=== PATIENT | female | born 1960 | race Caucasian/White ===

== ENCOUNTER → 2016-12-07 | Outpatient (REF) | payer OTHER ==
[~2016-12-07] MED LIST: ADV250INH INH; ALBU17IN INH; ASPI1TAB PO; CITA20TA4 PO; ENAL10TA2 PO; GABA-279 PO; OMEP20CA3 PO; PERC5TAB6 PO; TOLT1CAP4 PO; TOLT2TAB12 PO
[2016-12-07 12:59] LABS: BASO # 0.1 K/mm3 (0.0-0.2); BASO % 0.9 % (0.0-1.0); EOS # 0.2 K/mm3 (0.0-0.50); EOS % 2.4 % (0.0-3.0); LARGE UNSTAINED CELL # 0.1 K/mm3 (0.0-0.4); LARGE UNSTAINED CELL % 1.2 % (0.0-4.0); LYMPH # 1.6 K/mm3 (1.5-4.5); LYMPH % 21.6 % (24.0-44.0); MEAN CORPUSCULAR HEMOGLOBIN 31.2 pg (27.0-33.0); MEAN CORPUSCULAR HGB CONC 32.9 g/dl (32.0-36.5); MEAN CORPUSCULAR VOLUME 94.7 fl (80.0-96.0); MONO # 0.5 K/mm3 (0.0-0.8); MONO % 7.5 % (0.0-5.0); NEUTROPHILS # 4.7 K/mm3 (1.8-7.7); NEUTROPHILS % 66.4 % (36.0-66.0); PLATELET COUNT, AUTOMATED 532 k/mm3 (150-450); RED CELL DISTRIBUTION WIDTH 12.1 % (11.5-14.5); WHITE BLOOD COUNT 7.1 K/mm3 (4.0-10.0)
[2016-12-07 14:31] LABS: ERYTHROCYTE SEDIMENTATION RATE 41 mm/hr (0-30)
[2016-12-09 00:15] LABS: Lyme Disease IgG/IgM Antibodie <0.91 ISR (0.00-0.90); Lyme Disease IgM Ab Quantitati <0.80 index (0.00-0.79)
== END ==
LOC: M LABDRAW1 12:39
PROVIDERS: ATTEND Orthopaedic Surgery
DX: M47.892 Other spondylosis, cervical region (principal)

== ENCOUNTER → 2017-02-05 | Outpatient (CLI) | payer OTHER ==
[2017-02-05 18:19] LABS: INR 0.92
[2017-02-05 19:31] LABS: BASO # 0.1 K/mm3 (0.0-0.2); BASO % 1.1 % (0.0-1.0); EOS # 0.3 K/mm3 (0.0-0.50); EOS % 3.1 % (0.0-3.0); LARGE UNSTAINED CELL # 0.2 K/mm3 (0.0-0.4); LARGE UNSTAINED CELL % 1.6 % (0.0-4.0); LYMPH # 2.2 K/mm3 (1.5-4.5); LYMPH % 22.1 % (24.0-44.0); MEAN CORPUSCULAR HEMOGLOBIN 31.2 pg (27.0-33.0); MEAN CORPUSCULAR HGB CONC 33.4 g/dl (32.0-36.5); MEAN CORPUSCULAR VOLUME 93.4 fl (80.0-96.0); MONO # 0.7 K/mm3 (0.0-0.8); MONO % 7.5 % (0.0-5.0); NEUTROPHILS # 6.1 K/mm3 (1.8-7.7); NEUTROPHILS % 64.6 % (36.0-66.0); PLATELET COUNT, AUTOMATED 557 k/mm3 (150-450); RED CELL DISTRIBUTION WIDTH 12.3 % (11.5-14.5); WHITE BLOOD COUNT 9.4 K/mm3 (4.0-10.0)
[2017-02-05 19:59] LABS: ALBUMIN 3.5 GM/DL (3.2-5.2); ALBUMIN/GLOBULIN RATIO 0.92 (1.00-1.93); ALKALINE PHOSPHATASE 112 U/L (45-117); ALT/SGPT 14 U/L (12-78); ANION GAP 8 MEQ/L (8-16); AST/SGOT 9 U/L (15-37); BILIRUBIN,TOTAL 0.5 MG/DL (0.2-1.0); BLOOD UREA NITROGEN 14 MG/DL (7-18); CALCIUM LEVEL 8.7 MG/DL (8.5-10.1); CARBON DIOXIDE LEVEL 26 MEQ/L (21-32); CHLORIDE LEVEL 104 MEQ/L (98-107); CREATININE FOR GFR 0.72 MG/DL (0.55-1.02); GLOMERULAR FILTRATION RATE > 60.0 (>51); GLUCOSE, FASTING 72 MG/DL (70-105); POTASSIUM SERUM 4.3 MEQ/L (3.5-5.1); SODIUM LEVEL 138 MEQ/L (136-145); TOTAL PROTEIN 7.3 GM/DL (6.4-8.2)
[2017-02-05 20:43] LABS: ERYTHROCYTE SEDIMENTATION RATE 12 mm/hr (0-30)
== END ==
LOC: M LAB 16:34
PROVIDERS: ATTEND Internal Medicine Rheumatology
DX: M35.9 Systemic involvement of connective tissue, unspecified (principal); Z79.899 Other long term (current) drug therapy; R53.83 Other fatigue; R23.3 Spontaneous ecchymoses

== ENCOUNTER → 2017-02-15 | Outpatient (REF) | payer OTHER ==
[2017-02-15 10:28] LABS: BASO % 0.6 % (0.0-1.0); EOS # 0.1 K/mm3 (0.0-0.50); EOS % 1.5 % (0.0-3.0); LYMPH # 0.8 K/mm3 (1.5-4.5); LYMPH % 11.9 % (24.0-44.0); MEAN CORPUSCULAR HEMOGLOBIN 31.8 pg (27.0-33.0); MEAN CORPUSCULAR VOLUME 96.2 fl (80.0-96.0); MONO # 0.3 K/mm3 (0.0-0.8); NEUTROPHILS # 5.5 K/mm3 (1.8-7.7); NEUTROPHILS % 81.2 % (36.0-66.0); RED CELL DISTRIBUTION WIDTH 12.3 % (11.5-14.5); RETIC HEMOGLOBIN CONTENT CHr 32.8 PG (24-36); RETICULOCYTE % ADVIA2120 1.8 % (0.5-1.5); WHITE BLOOD COUNT 6.8 K/mm3 (4.0-10.0)
[2017-02-15 10:51] LABS: PERCENT SATURATION 16.8 % (13.2-37.4)
[2017-02-15 10:57] LABS: FOLATE 7.5 NG/ML (>5.4)
== END ==
LOC: M LABDRAW1 09:04
PROVIDERS: ATTEND Registered Nurse Diabetes Educator
DX: E03.9 Hypothyroidism, unspecified (principal); J44.9 Chronic obstructive pulmonary disease, unspecified; I10 Essential (primary) hypertension; K21.0 Gastro-esophageal reflux disease with esophagitis; R07.9 Chest pain, unspecified

== ENCOUNTER → 2017-02-20 | Outpatient (REF) | payer OTHER ==
[2017-02-20 19:19] LABS: PERCENT SATURATION 12.6 % (13.2-37.4)
== END ==
LOC: M LAB REF 16:58
PROVIDERS: ATTEND Internal Medicine Medical Oncology
DX: D69.1 Qualitative platelet defects (principal)

== ENCOUNTER → 2017-05-10 | Outpatient (REF) | payer OTHER ==
[~2017-05-10] MED LIST changes: +DULO1CAP3 PO; +GABA-283 PO; +HYDR-3713 PO; +PERC5TAB12 PO; -PERC5TAB6 PO; +ZOLO50TA PO
[2017-05-10 17:26] LABS: ALBUMIN 3.6 GM/DL (3.2-5.2); ALBUMIN/GLOBULIN RATIO 1.06 (1.00-1.93); ALKALINE PHOSPHATASE 107 U/L (45-117); ALT/SGPT 20 U/L (12-78); ANION GAP 11 MEQ/L (8-16); AST/SGOT 12 U/L (15-37); BILIRUBIN,TOTAL 0.5 MG/DL (0.2-1.0); BLOOD UREA NITROGEN 15 MG/DL (7-18); CALCIUM LEVEL 9.3 MG/DL (8.5-10.1); CARBON DIOXIDE LEVEL 26 MEQ/L (21-32); CHLORIDE LEVEL 105 MEQ/L (98-107); CREATININE FOR GFR 0.76 MG/DL (0.55-1.02); GLOMERULAR FILTRATION RATE > 60.0 (>51); GLUCOSE, FASTING 81 MG/DL (70-105); POTASSIUM SERUM 4.2 MEQ/L (3.5-5.1); SODIUM LEVEL 142 MEQ/L (136-145)
[2017-05-10 17:33] LABS: VITAMIN B12 LEVEL 685 PG/ML (247-911)
[2017-05-10 17:56] LABS: BASO # 0.1 K/mm3 (0.0-0.2); BASO % 0.9 % (0.0-1.0); EOS # 0.2 K/mm3 (0.0-0.50); EOS % 2.1 % (0.0-3.0); LARGE UNSTAINED CELL # 0.1 K/mm3 (0.0-0.4); LARGE UNSTAINED CELL % 1.3 % (0.0-4.0); LYMPH % 18.1 % (24.0-44.0); MEAN CORPUSCULAR HEMOGLOBIN 32.5 pg (27.0-33.0); MEAN CORPUSCULAR HGB CONC 33.8 g/dl (32.0-36.5); MONO # 0.6 K/mm3 (0.0-0.8); MONO % 5.8 % (0.0-5.0); NEUTROPHILS # 7.5 K/mm3 (1.8-7.7); NEUTROPHILS % 71.7 % (36.0-66.0); PLATELET COUNT, AUTOMATED 485 k/mm3 (150-450); WHITE BLOOD COUNT 10.5 K/mm3 (4.0-10.0)
== END ==
LOC: M LABDRAW1 16:10
PROVIDERS: ATTEND Internal Medicine Medical Oncology
DX: D47.3 Essential (hemorrhagic) thrombocythemia (principal)

== ENCOUNTER 2017-05-15 16:28 | Emergency (ER) | payer OTHER ==
[~2017-05-15] VITALS: Ht 152.4 cm; Wt 100.9 kg
[~2017-05-15 16:28] MED LIST changes: -DULO1CAP3 PO; -GABA-283 PO; -HYDR-3713 PO; -ZOLO50TA PO
[2017-05-15] MEDS ORDERED: DULO1CAP3 PO (16:42)
[2017-05-15] MEDS ORDERED: GABA-283 PO (16:42)
[2017-05-15] MEDS ORDERED: KETOROLAC 60 MG/2 ML VIAL (J1885) IM ONE (18:15)
--- NOTE | 2017-05-15 19:10 | REPUSA ---
HISTORY: RIGHT RENAL COLIC. TECHNIQUE: Axial CT scan imaging of abdomen and pelvis with coronal and sagittal reformatted imaging, without contrast. DLP= 1142.4 mGy-cm. FINDINGS: No calculus is seen in the right kidney and no is seen on the noncontrast examination. Rig ht ureter is not dilated but there is a tiny suspected 1 mm calculus seen in the right pelvic ureter on image 102 that could represent nonobstructing calculus. The ureter at the ureterovesical junction is normal. Left kidney, left ureter, and urinary bladder demonstrate no mass or obstruction or evid ence of calculus. The liver, biliary tree, gallbladder, spleen, pancreas, adrenal glands, and retroperitoneal structure s are normal. No other pelvic mass lesions or abnormal peritoneal fluid collections are seen. The b owel is normal and the appendix is normal. No abdominal wall hernia is seen. Lung bases are clear. Degenerative changes are noted in the spine. No bony fracture or destructive bony lesion is seen. IMPRESSION: 1. There is question of a tiny nonobstructing 1 mm calculus in the right pelvic ureter, with no other abnormality seen in the urinary tract: Noncontrast examination. 2. The remainder of the noncontrast CT examination of the abdomen and pelvis is normal.
[2017-05-15] MEDS ORDERED: HYDROmorphone HCL 1 MG/ML SYRINGE (J1170) IM ONE (19:30)
[2017-05-15] MEDS ORDERED: HYDR-3713 PO (19:32)
[2017-05-15 20:00] VITALS: BP 123/70
[2017-07-23] MEDS ORDERED: ZOLO50TA PO (12:37)
== END 2017-05-15 20:05 | disposition home or self-care (01) ==
LOC: M ED 16:28
DX: M54.31 Sciatica, right side (principal); I25.10 Atherosclerotic heart disease of native coronary artery without angina pectoris; I10 Essential (primary) hypertension; J44.9 Chronic obstructive pulmonary disease, unspecified; F99 Mental disorder, not otherwise specified; E66.9 Obesity, unspecified; F17.210 Nicotine dependence, cigarettes, uncomplicated; Z88.1 Allergy status to other antibiotic agents; Z88.2 Allergy status to sulfonamides; Z88.5 Allergy status to narcotic agent; Z79.82 Long term (current) use of aspirin; Z79.899 Other long term (current) drug therapy
CPT/HCPCS: 74176; 81001; 96372; 99283; J1170; J1885

== ENCOUNTER → 2017-05-29 | Outpatient (CLI) | payer OTHER ==
[~2017-05-29] MED LIST changes: +DULO1CAP3 PO; +GABA-283 PO; +HYDR-3713 PO; +ZOLO50TA PO
[2017-05-29 13:35] LABS: BLOOD UREA NITROGEN 12 MG/DL (7-18); CREATININE FOR GFR 0.75 MG/DL (0.55-1.02); GLOMERULAR FILTRATION RATE > 60.0 (>51)
== END ==
LOC: M SMT 10:52
PROVIDERS: ATTEND Physical Medicine & Rehabilitation
DX: Z01.812 Encounter for preprocedural laboratory examination (principal)

== ENCOUNTER 2017-07-05 13:22 | Emergency (ER) | payer OTHER ==
[~2017-07-05] VITALS: Ht 154.9 cm; Wt 100.0 kg
[~2017-07-05 13:22] MED LIST changes: -ZOLO50TA PO
[2017-07-05] MEDS ORDERED: PERCOCET 5MG/325MG TAB PO ONE (16:00)
--- NOTE | 2017-07-05 17:19 | REP ---
LEFT ELBOW: Four views of the left elbow are performed. There is no acute fracture or dislocation. There is moderate spurring of the proximal ulna. Linear calcification along the medial humeral epicondyle probably represents ligamentous calcification. IMPRESSION: Degenerative changes. No fracture or dislocation. Signed by Aime Hernandez MD 07/05/2017 07:56 P
[2017-07-05] MEDS ORDERED: HYDR-3713 PO (17:22)
--- NOTE | 2017-07-05 17:27 | REP ---
LEFT KNEE SERIES, FIVE VIEWS: There is no evidence of acute fracture or dislocation. There is moderate lateral joint space narrowing with subchondral sclerosis and spurring. There is mild narrowing of the medial and lateral joint compartments with mild subchondral sclerosis and spurring. I do not see a significant joint effusion. IMPRESSION: No acute fracture. Degenerative changes. Signed by Aime Hernandez MD 07/05/2017 07:56 P
[2017-07-05 17:29] VITALS: BP 127/87
[2017-07-23] MEDS ORDERED: ZOLO50TA PO (12:37)
== END 2017-07-05 17:32 | disposition home or self-care (01) ==
LOC: M ED 13:22
DX: S80.02XA Contusion of left knee, initial encounter (principal); W01.0XXA Fall on same level from slipping, tripping and stumbling without subsequent striking against object, initial encounter; Y92.018 Other place in single-family (private) house as the place of occurrence of the external cause; Y93.89 Activity, other specified; Y99.8 Other external cause status; M54.5 Low back pain; I10 Essential (primary) hypertension; J44.9 Chronic obstructive pulmonary disease, unspecified; G47.30 Sleep apnea, unspecified; R32 Unspecified urinary incontinence; M19.90 Unspecified osteoarthritis, unspecified site; M48.02 Spinal stenosis, cervical region; Z79.899 Other long term (current) drug therapy; Z79.82 Long term (current) use of aspirin; Z88.1 Allergy status to other antibiotic agents; Z88.2 Allergy status to sulfonamides; Z88.5 Allergy status to narcotic agent

== ENCOUNTER → 2017-07-27 | Outpatient (REF) | payer OTHER ==
[~2017-07-27] MED LIST changes: +ZOLO50TA PO
[2017-07-27 14:11] LABS: YEAST LIKE CELL URINE AUTO SMALL
== END ==
LOC: M SMT 13:09
PROVIDERS: ATTEND Nurse Practitioner Women's Health
DX: R30.0 Dysuria (principal)

== ENCOUNTER 2017-08-06 12:58 | Day surgery (SDC) | payer OTHER ==
[~2017-08-06] VITALS: Ht 154.9 cm; Wt 100.6 kg
[2017-08-06] MEDS ORDERED: CLINDAMYCIN 600 MG in APPROPRIATE DILUENT 1 EA IV ONE (13:00)
[2017-08-06] MEDS ORDERED: LR 1,000 ML IV ONE (13:00)
[2017-08-06] MEDS ORDERED: LIDOCAINE 2% INJ 100 MG/5 ML SDV (FOR ANES.) As Ordered ONE (16:13)
[2017-08-06] MEDS ORDERED: PROPOFOL 200 MG/20 ML VIAL As Ordered ONE (16:13)
[2017-08-06] MEDS ORDERED: fentaNYL 100 MCG/2 ML INJECTION (J3010) As Ordered ONE (16:14)
[2017-08-06] MEDS ORDERED: MIDAZOLAM INJ 2 MG/2 ML VIAL (J2250) As Ordered ONE (16:14)
[2017-08-06] MEDS ORDERED: ROPIvacaine 0.5% 30 ML INJECTION (J2795) As Ordered ONE (16:37)
[2017-08-06] MEDS ORDERED: NORCO, ANEXSIA 5/325MG TABLET (HYDROcodone/ACETAMINOPHEN) PO PRN (19:00)
[2017-08-06] MEDS ORDERED: ONDANSETRON 4MG/2ML VIAL (J2405) IV PRN (19:00)
[2017-08-06] MEDS ORDERED: METOCLOPRAMIDE INJ 10MG/2ML VIAL (J2765) IV PRN (19:00)
[2017-08-06] MEDS ORDERED: fentaNYL 100 MCG/2 ML INJECTION (J3010) IV PRN (19:00)
[2017-08-06] MEDS ORDERED: LR 1,000 ML IV SCH ×2 (19:00)
[2017-08-06] MEDS ORDERED: MORPHINE 2 MG/ML 1ML SYRINGE IV PRN (19:00)
[2017-08-06] MEDS ORDERED: PERCOCET 5MG/325MG TAB PO PRN (19:00)
[2017-08-06] MEDS: NORCO, ANEXSIA 5/325MG TABLET (HYDROcodone/ACETAMINOPHEN) PO PRN (19:24)
[2017-08-06 21:00] VITALS: BP 132/70
[2017-08-06] MEDS ORDERED: PHENYLephrine HCL 500 MCG/5 ML (100MCG/ML) SYRINGE (J2370) As Ordered ONE (21:46)
[2017-08-06 22:00] VITALS: BP 121/80
[2017-08-07 02:00] VITALS: BP 115/68
[2017-08-07 06:00] VITALS: BP 108/90
[2017-08-07] MEDS: NORCO, ANEXSIA 5/325MG TABLET (HYDROcodone/ACETAMINOPHEN) PO PRN ×2 (06:43→12:35)
--- NOTE | 2017-08-08 07:33 | RO ---
DATE OF PROCEDURE: 08/06/2017 PREOPERATIVE DIAGNOSIS: Right knee lateral meniscus tear and arthritis. POSTOPERATIVE DIAGNOSIS: Right knee lateral meniscus tear and arthritis with medial meniscus tear and advanced patellofemoral arthritis. PROCEDURE: Right knee operative arthroscopy, partial medial and lateral meniscectomy, joint debridement. SURGEON: Dr. Zach Damico RINK RAT: Woo Mcknight ANESTHESIA: Spinal. ESTIMATED BLOOD LOSS: Minimal. COMPLICATIONS: None. INDICATIONS: This is a 57-year-old morbidly obese woman who has had persistent right knee pain. MRI scan was consistent with possible meniscus pathology, but also had some advanced arthritis. She is really not a very good total knee candidate because of her obesity. She wished to try and arthroscopy, understanding that I would not be able to help her with the arthritis. She understood the nature of this and the risks of bleeding, infection, damage to nerves, vessels, persistent pain, blood clots, medical problems, among others. PROCEDURE: The patient was taken to the operating room and placed in supine position after spinal anesthesia was induced. She was prepped and draped in the usual sterile fashion. A time-out was performed. Inferomedial and inferolateral portals were created per routine. Identified the patellofemoral joint and she had extensive arthritis of the patellofemoral joint, grade 4 throughout much of the joint. I proceeded down both gutters. She had some loose flaps of articular cartilage on the medial femoral condyle that were debrided back. She had a full thickness medial meniscus tear of the posterior horn that was debrided back with a combination of basket punch and a 4.2 shaver back to stable rim. I proceeded to the notch. The anterior cruciate ligament (ACL) was overall unremarkable. The lateral compartment was identified and there was some central lateral meniscus tearing throughout much of the meniscus. I debrided this with a shaver, reprobed the menisci and made sure that was stable. Went back to the patellofemoral joint and debrided back some of the plica around the medial side. Multiple images were obtained. The portals were closed with #4-0 nylon suture and 30 mL of Naropin were injected. She was taken to the recovery room in stable condition. There were no known complications. The plan will be routine postoperative.
== END 2017-08-07 13:00 | disposition home or self-care (01) ==
LOC: M SDC 12:58 → M MS5PR 21:15 → M SDC 08-07 13:00
PROVIDERS: ATTEND Orthopaedic Surgery
DX: M23.221 Derangement of posterior horn of medial meniscus due to old tear or injury, right knee (principal); M23.200 Derangement of unspecified lateral meniscus due to old tear or injury, right knee; M17.0 Bilateral primary osteoarthritis of knee; I10 Essential (primary) hypertension; I25.10 Atherosclerotic heart disease of native coronary artery without angina pectoris; T88.59XD Other complications of anesthesia, subsequent encounter; I25.2 Old myocardial infarction; K21.9 Gastro-esophageal reflux disease without esophagitis; M48.00 Spinal stenosis, site unspecified; F41.9 Anxiety disorder, unspecified; F32.9 Major depressive disorder, single episode, unspecified; J44.9 Chronic obstructive pulmonary disease, unspecified; G47.33 Obstructive sleep apnea (adult) (pediatric); R32 Unspecified urinary incontinence; D64.9 Anemia, unspecified; M47.22 Other spondylosis with radiculopathy, cervical region; G89.29 Other chronic pain; E03.9 Hypothyroidism, unspecified; F17.210 Nicotine dependence, cigarettes, uncomplicated; E66.01 Morbid (severe) obesity due to excess calories; Z88.2 Allergy status to sulfonamides; Z88.5 Allergy status to narcotic agent; Z88.8 Allergy status to other drugs, medicaments and biological substances; Z79.899 Other long term (current) drug therapy; Z79.82 Long term (current) use of aspirin; Z87.442 Personal history of urinary calculi; Z90.710 Acquired absence of both cervix and uterus

== ENCOUNTER 2017-09-20 11:25 | Emergency (ER) | payer OTHER ==
[~2017-09-20] VITALS: Ht 154.9 cm; Wt 100.5 kg
[2017-09-20 11:26] VITALS: BP 137/91
[2017-09-20] MEDS ORDERED: NORCOTAB PO (13:46)
== END 2017-09-20 14:16 | disposition home or self-care (01) ==
LOC: M ED 11:25
DX: M54.41 Lumbago with sciatica, right side (principal); M54.17 Radiculopathy, lumbosacral region; I10 Essential (primary) hypertension; J44.9 Chronic obstructive pulmonary disease, unspecified; E78.00 Pure hypercholesterolemia, unspecified; M19.90 Unspecified osteoarthritis, unspecified site; F41.9 Anxiety disorder, unspecified; F33.9 Major depressive disorder, recurrent, unspecified; Z87.442 Personal history of urinary calculi; Z86.73 Personal history of transient ischemic attack (TIA), and cerebral infarction without residual deficits; Z79.899 Other long term (current) drug therapy; Z79.82 Long term (current) use of aspirin; Z88.1 Allergy status to other antibiotic agents; Z88.2 Allergy status to sulfonamides; Z88.5 Allergy status to narcotic agent; Z88.8 Allergy status to other drugs, medicaments and biological substances; F17.210 Nicotine dependence, cigarettes, uncomplicated

== ENCOUNTER 2017-10-22 11:15 | Emergency (ER) | payer OTHER | END 2017-10-22 17:14 | disposition home or self-care (01) | LOC: M ED 11:15 | DX: S20.212A Contusion of left front wall of thorax, initial encounter (principal); W01.0XXA Fall on same level from slipping, tripping and stumbling without subsequent striking against object, initial encounter; Y92.018 Other place in single-family (private) house as the place of occurrence of the external cause; I10 Essential (primary) hypertension; F41.9 Anxiety disorder, unspecified; F33.9 Major depressive disorder, recurrent, unspecified; M51.9 Unspecified thoracic, thoracolumbar and lumbosacral intervertebral disc disorder; G47.30 Sleep apnea, unspecified; I25.9 Chronic ischemic heart disease, unspecified; Z79.899 Other long term (current) drug therapy; Z79.82 Long term (current) use of aspirin; Z88.1 Allergy status to other antibiotic agents; Z88.2 Allergy status to sulfonamides; Z88.5 Allergy status to narcotic agent; F17.210 Nicotine dependence, cigarettes, uncomplicated | CPT/HCPCS: 71100 ==

== ENCOUNTER → 2017-11-06 | Outpatient (REF) | payer OTHER ==
[2017-11-06 14:21] LABS: VITAMIN B12 LEVEL 496 PG/ML (247-911)
[2017-11-06 14:22] LABS: FERRITIN 91 NG/ML (8-252); IRON (FE) 53 UG/DL (50-170); PERCENT SATURATION 14.4 % (13.2-45.0); TOTAL IRON BINDING CAPACITY 368 UG/DL (250-450)
[2017-11-06 16:27] LABS: ERYTHROCYTE SEDIMENTATION RATE 33 mm/hr (0-30)
[2017-11-09 00:06] LABS: METHYLMALONIC ACID 237 nmol/L (0-378)
== END ==
LOC: M LAB REF 13:19
DX: D69.6 Thrombocytopenia, unspecified (principal)

== ENCOUNTER 2017-11-27 08:30 | Day surgery (SDC) | payer OTHER ==
[2017-11-27] MEDS: NS 1,000 ML IV (09:35)
[2017-11-27] MEDS ORDERED: LIDOCAINE 2% INJ 100 MG/5 ML SDV (FOR ANES.) As Ordered (10:07)
[2017-11-27] MEDS ORDERED: PROPOFOL 200 MG/20 ML VIAL As Ordered ×2 (10:07→10:10)
== END 2017-11-27 11:30 | disposition home or self-care (01) ==
LOC: M OPP 08:30
DX: Z12.11 Encounter for screening for malignant neoplasm of colon (principal); K64.0 First degree hemorrhoids; D12.6 Benign neoplasm of colon, unspecified; K57.30 Diverticulosis of large intestine without perforation or abscess without bleeding; D64.9 Anemia, unspecified; G47.33 Obstructive sleep apnea (adult) (pediatric); I10 Essential (primary) hypertension; J44.9 Chronic obstructive pulmonary disease, unspecified; F41.9 Anxiety disorder, unspecified; F32.9 Major depressive disorder, single episode, unspecified; F17.210 Nicotine dependence, cigarettes, uncomplicated; I25.2 Old myocardial infarction; Z79.899 Other long term (current) drug therapy; Z88.8 Allergy status to other drugs, medicaments and biological substances; Z90.710 Acquired absence of both cervix and uterus
CPT/HCPCS: 45385

== ENCOUNTER 2017-12-17 11:56 | Emergency (ER) | payer OTHER ==
[2017-12-17] MEDS: ALBUTEROL SULFATE 2.5 MG/0.5 ML INH NEB SOLN NEB (13:05)
== END 2017-12-17 14:50 | disposition home or self-care (01) ==
LOC: M ED 11:56
DX: J44.1 Chronic obstructive pulmonary disease with (acute) exacerbation (principal); J20.9 Acute bronchitis, unspecified; F17.200 Nicotine dependence, unspecified, uncomplicated; I25.10 Atherosclerotic heart disease of native coronary artery without angina pectoris; I25.2 Old myocardial infarction; I10 Essential (primary) hypertension; R51 Headache; E78.5 Hyperlipidemia, unspecified; G47.30 Sleep apnea, unspecified; K21.9 Gastro-esophageal reflux disease without esophagitis; E03.9 Hypothyroidism, unspecified; G89.29 Other chronic pain; M54.9 Dorsalgia, unspecified; M54.30 Sciatica, unspecified side; M51.9 Unspecified thoracic, thoracolumbar and lumbosacral intervertebral disc disorder; Z79.82 Long term (current) use of aspirin; Z79.899 Other long term (current) drug therapy; Z88.1 Allergy status to other antibiotic agents; Z88.2 Allergy status to sulfonamides; Z88.5 Allergy status to narcotic agent
CPT/HCPCS: 71046

== ENCOUNTER → 2018-01-24 | Outpatient (CLI) | payer OTHER | LOC: M RAD 13:16 | DX: M51.26 Other intervertebral disc displacement, lumbar region (principal); M48.061 Spinal stenosis, lumbar region without neurogenic claudication; M12.88 Other specific arthropathies, not elsewhere classified, other specified site; M43.16 Spondylolisthesis, lumbar region; M51.37 Other intervertebral disc degeneration, lumbosacral region | CPT/HCPCS: 72146 ==

== ENCOUNTER → 2018-01-28 | Outpatient (CLI) | payer OTHER | LOC: M RAD 08:23 | DX: M50.31 Other cervical disc degeneration, high cervical region (principal); M12.88 Other specific arthropathies, not elsewhere classified, other specified site; M50.21 Other cervical disc displacement, high cervical region; M50.221 Other cervical disc displacement at C4-C5 level; M50.222 Other cervical disc displacement at C5-C6 level; M50.223 Other cervical disc displacement at C6-C7 level; M50.23 Other cervical disc displacement, cervicothoracic region; M47.892 Other spondylosis, cervical region | CPT/HCPCS: 72141 ==

== ENCOUNTER → 2018-04-25 | Outpatient (REF) | payer OTHER ==
[2018-04-25 12:34] LABS: BASO # 0.1 10^3/uL (0.0-0.2); BASO % 0.6 % (0.0-1.0); EOS # 0.2 10^3/uL (0.0-0.50); EOS % 2.6 % (0.0-3.0); HEMATOCRIT 42.9 % (36.0-47.0); IMMATURE GRANULOCYTE % 0.3 % (0-3.0); LYMPH # 1.8 10^3/uL (1.5-4.5); LYMPH % 23.4 % (24.0-44.0); MEAN CORPUSCULAR HEMOGLOBIN 31.3 pg (27.0-33.0); MEAN CORPUSCULAR HGB CONC 32.6 g/dl (32.0-36.5); MEAN CORPUSCULAR VOLUME 95.8 fl (80.0-96.0); MONO # 0.6 10^3/uL (0.0-0.8); MONO % 8.3 % (0.0-5.0); NEUTROPHILS % 64.8 % (36.0-66.0); PLATELET COUNT, AUTOMATED 464 10^3/uL (150-450); RED BLOOD COUNT 4.48 10^6/uL (4.00-5.40); WHITE BLOOD COUNT 7.8 10^3/uL (4.0-10.0)
[2018-04-25 13:51] LABS: ALBUMIN 3.3 GM/DL (3.2-5.2); ALBUMIN/GLOBULIN RATIO 0.87 (1.00-1.93); ALKALINE PHOSPHATASE 114 U/L (45-117); ALT/SGPT 17 U/L (12-78); ANION GAP 8 MEQ/L (8-16); AST/SGOT 12 U/L (7-37); BILIRUBIN,TOTAL 0.5 MG/DL (0.2-1.0); BLOOD UREA NITROGEN 9 MG/DL (7-18); CALCIUM LEVEL 8.7 MG/DL (8.5-10.1); CARBON DIOXIDE LEVEL 29 MEQ/L (21-32); CHLORIDE LEVEL 106 MEQ/L (98-107); CHOLESTEROL LEVEL 169 MG/DL (<200); CHOLESTEROL RISK RATIO 2.725 (<5); CREATININE FOR GFR 0.71 MG/DL (0.55-1.30); GLOMERULAR FILTRATION RATE > 60.0 (>51); GLUCOSE, FASTING 91 MG/DL (70-100); HDL CHOLESTEROL 62 MG/DL (>40); LDL CHOLESTEROL 91.8 MG/DL (<100); NON-HDL-C 107 MG/DL; POTASSIUM SERUM 4.3 MEQ/L (3.5-5.1); SODIUM LEVEL 143 MEQ/L (136-145); TOTAL PROTEIN 7.1 GM/DL (6.4-8.2); TRIGLYCERIDES LEVEL 76 MG/DL (<150)
== END ==
LOC: M LABDRAW1 12:03
DX: J44.9 Chronic obstructive pulmonary disease, unspecified (principal); G89.29 Other chronic pain; I10 Essential (primary) hypertension; E03.9 Hypothyroidism, unspecified; E66.8 Other obesity
CPT/HCPCS: 84443

== ENCOUNTER → 2018-05-15 | Outpatient (REF) | payer OTHER ==
[2018-05-15 13:47] LABS: FERRITIN 83 NG/ML (8-252); IRON (FE) 61 UG/DL (50-170); PERCENT SATURATION 17.7 % (13.2-45.0); TOTAL IRON BINDING CAPACITY 345 UG/DL (250-450)
== END ==
LOC: M LAB REF 13:17
DX: D47.3 Essential (hemorrhagic) thrombocythemia (principal)

== ENCOUNTER → 2018-06-27 | Outpatient (CLI) | payer OTHER | LOC: M RAD 16:02 | DX: Z12.31 Encounter for screening mammogram for malignant neoplasm of breast (principal) | CPT/HCPCS: 77067 ==

== ENCOUNTER 2019-01-29 11:28 | Day surgery (SDC) | payer OTHER ==
[~2019-01-29] VITALS: Ht 154.9 cm; Wt 100.8 kg
[~2019-01-29 11:28] MED LIST changes: -ASPI1TAB PO; +ASPI81TA26 PO; +AZIT-12 PO; -CITA20TA4 PO; +CITA20TA6 PO; +CYCL10TA PO; +FERR325T3 PO; +GABA-1171 PO; -GABA-279 PO; -GABA-283 PO; +GABA-843 PO; +GABA-845 PO; +HYDR-3715 PO; +IBUP-1022 PO; +LEVA45AE INH; +PRED20TA PO; +SERT-138 PO; +SEVOFLURANE INHAL SOLN 250 ML BTL As Ordered ONE; -TOLT1CAP4 PO; +TOLT2CAP4 PO; +VANCOMYCIN HCL 1,000 MG, VIAL MATE ADAPTER 1 EACH in D5W 250 ML IV ONE; +VENTAER IN; +VICO5TAB17 PO; +VITA100067 PO; +ZITHTAB PO; +vitamin D3 PO
[2019-01-29] MEDS ORDERED: VITAD1000T PO (12:05)
[2019-01-29] MEDS ORDERED: CVS5000S2 PO (12:05)
[2019-01-29] MEDS ORDERED: PREG100CA PO (12:05)
[2019-01-29] MEDS ORDERED: BIOT10TA2 PO (12:05)
[2019-01-29] MEDS: LR 1,000 ML IV SCH ×3 (12:11→19:15)
[2019-01-29] MEDS ORDERED: fentaNYL 100 MCG/2 ML INJECTION (J3010) As Ordered ONE ×3 (12:59→16:49)
[2019-01-29] MEDS ORDERED: MIDAZOLAM INJ 2 MG/2 ML VIAL (J2250) As Ordered ONE ×2 (13:00→13:09)
[2019-01-29] MEDS ORDERED: BUPIVACAINE HCL 0.25% 30 ML VIAL As Ordered ONE (13:01)
[2019-01-29] MEDS ORDERED: PROPOFOL 200 MG/20 ML VIAL As Ordered ONE (13:08)
[2019-01-29] MEDS ORDERED: ROCURONIUM BROMIDE 50 MG/5 ML VIAL As Ordered ONE ×2 (13:08→17:23)
[2019-01-29] MEDS ORDERED: LIDOCAINE 2% INJ 100 MG/5 ML SDV (FOR ANES.) As Ordered ONE (13:08)
[2019-01-29] MEDS ORDERED: ONDANSETRON 4MG/2ML VIAL (J2405) As Ordered ONE (13:10)
[2019-01-29] MEDS ORDERED: dexameTHASONE 4 MG/ML 1ML VIAL (J1100) As Ordered ONE (13:10)
[2019-01-29] MEDS ORDERED: NEOSTIGMINE 10 MG/10 ML VIAL (J2710) As Ordered ONE (13:10)
[2019-01-29] MEDS ORDERED: KETOROLAC 60 MG/2 ML VIAL (J1885) As Ordered ONE (13:10)
[2019-01-29] MEDS ORDERED: GLYCOPYRROLATE INJ 0.2 MG/ML 2 ML VIAL As Ordered ONE (13:10)
[2019-01-29] MEDS ORDERED: MIDAZOLAM INJ 2 MG/2 ML VIAL (J2250) IV ONE (14:15)
[2019-01-29] MEDS ORDERED: fentaNYL 100 MCG/2 ML INJECTION (J3010) IV ONE (14:15)
[2019-01-29] MEDS ORDERED: CLINDAMYCIN 600 MG/50 ML PREMIX BAG As Ordered ONE (16:40)
[2019-01-29] MEDS ORDERED: ePHEDrine SULFATE 25 MG/5 ML(5MG/ML) SYRINGE As Ordered ONE (17:03)
[2019-01-29] MEDS ORDERED: oxyCODONE 5MG TAB As Ordered ONE (19:07)
[2019-01-29] MEDS: oxyCODONE 5MG TAB PO PRN (19:11)
[2019-01-29] MEDS ORDERED: FLEET ENEMA PR PRN (19:15)
[2019-01-29] MEDS ORDERED: oxyCODONE 5MG TAB PO PRN (19:30)
[2019-01-29 19:50] VITALS: BP 144/89
[2019-01-29] MEDS ORDERED: HYDROMORPHONE HCL 0.5 MG/ 0.5 ML SYRINGE (J1170 PER 1) IV PRN (20:15)
[2019-01-29] MEDS ORDERED: fentaNYL 100 MCG/2 ML INJECTION (J3010) IV PRN (20:15)
[2019-01-29 20:20] VITALS: BP 182/90
[2019-01-29 21:20] VITALS: BP 132/82
[2019-01-29] MEDS: ACETAMINOPHEN 500 MG TAB PO SCH (21:44)
[2019-01-29 22:20] VITALS: BP 133/77
[2019-01-29 23:20] VITALS: BP 119/73
[2019-01-30 00:23] VITALS: BP 120/74
[2019-01-30] MEDS: oxyCODONE 5MG TAB PO PRN (00:27)
[2019-01-30 02:00] VITALS: BP 92/69
[2019-01-30 06:00] VITALS: BP 96/61
[2019-01-30] MEDS: ACETAMINOPHEN 500 MG TAB PO SCH (06:21)
[2019-01-30] MEDS: LR 1,000 ML IV SCH (06:22)
[2019-01-30] MEDS ORDERED: RIVAROXABAN 10 MG TAB (XARELTO) PO SCH (08:00)
[2019-01-30] MEDS ORDERED: XARE10TA PO ×2 (08:25→08:31)
--- NOTE | 2019-01-30 10:00 | REP ---
Right os calcis: Single view. History: Achilles tendon repair. Calcaneal exostosis excision. 8 seconds of fluoroscopy time is reported. Findings: A single last image hold fluoroscopically obtained lateral view of the calcaneus shows postoperative changes. Electronically Signed by Earnest Paulino MD 01/30/2019 10:11 A
--- NOTE | 2019-02-05 12:07 | RO ---
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 PROCEDURE: 1. 2. 3. Use of the mini C-arm. SURGEON: Dr. Viola Hemphill GRINDER NEEDLE TIP: SKINNY Josue ANESTHESIA: ESTIMATED BLOOD LOSS: 10 mL. SPECIMENS: Achilles tendon. COMPLICATIONS: None. CONDITION: Stable to recovery. 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 She has failed with conservative measures. She presents for elective Achilles debridement and excision of Victor Hugo deformity. The risks and benefits of surgery were discussed with the patient and include but are not limited to infection, damage to nerves and blood vessels, continued pain and stiffnes, need for additional procedures. Informed consent was obtained in the office. DESCRIPTION OF PROCEDURE: The patient was met in the preoperative holding area where the right lower extremity was marked at the correct operative site. She underwent a popliteal nerve block. She was transferred to the operating room where she underwent general anesthesia. A well padded tourniquet was placed on the right upper thigh. The patient was placed in the prone position. Care was taken to make sure all extremities were well padded. Her right lower extremity underwent a chlorhexidine scrub. It was then prepped and draped in a normal sterile fashion. She did receive antibiotics within 60 minutes prior to incision. An official time out was held where the correct patient, operative site and operative procedure were verified. Appropriate radiographs were displayed in the operating room. Incision was made midline over the Achilles tendon. Careful dissection to the level of the peritenon was performed. The peritenon was then excised. Care was taken to avoid the sural nerve laterally. There was found to be moderate tendinosis throughout the distal aspect of the tendon. A midline slit was made at the insertion extending approximately 3 cm proximally. The tendon was gently elevated off the calcaneal insertion. There was quite a large enthesophyte. This was removed with an osteotome and a rongeur. Following this, a calcaneal exostectomy was performed. The level of Victor Hugo excision was verified on C-arm. It was then removed using a #38 saw. The calcaneus itself was then smoothed down so there were no prominent edges using a power rasp. The Achilles tendon then was debrided of any tendonitic tissue anteriorly. There was found to be at least 50% of the tendon left after I had finished a thorough debridement and so decision was made to hold off on any transfer of the FHL tendon. There was a significant amount of bursitis in the retrocalcaneal bursa and this was removed. Copious irrigation was performed. I was satisfied with the calcaneal resection and debridement of the Achilles tendon. The tendon was reattached using the [employer] SpeedBridge system. Two holes were drilled proximally and the swivel lock anchors were inserted. This was passed through the tendon. I did use the on both the medial and lateral limbs to approximately tension of the Achilles as I was reinserting it. The fiber wires were then crossed and placed distally into two holes just distal to the insertion. There was good bite on all swivel lock anchors and this provided for a nice reattachment of the tendon to the bone. The tendon split was closed using #0 Vicryl. This was done in a running fashion. The peritenon was then closed using #2-0 Vicryl in a running fashion. The soft tissues were closed using #3-0 Vicryl and the skin was closed using #0 nylon. A sterile dressing was applied and the patient was placed into a well padded splint in slight plantar flexion. She was transferred to the supine position and extubated without difficulty. She was transferred to the recovery room in stable condition. PLAN: The patient will be nonweight bearing in the right lower extremity . She will be on two weeks of Xarelto for deep vein thrombosis prophylaxis. Following that, we will transition her to aspirion. She will keep her leg elevated. We will see her back in one week for a wound check.
== END 2019-01-30 14:00 | disposition home or self-care (01) ==
LOC: M SDC 11:28 → M MS5PR 20:15 → M SDC 01-30 14:00
PROVIDERS: ATTEND Orthopaedic Surgery
DX: I25.10 Atherosclerotic heart disease of native coronary artery without angina pectoris (principal); I25.2 Old myocardial infarction; I10 Essential (primary) hypertension; E03.9 Hypothyroidism, unspecified; K21.9 Gastro-esophageal reflux disease without esophagitis; M51.9 Unspecified thoracic, thoracolumbar and lumbosacral intervertebral disc disorder; R06.02 Shortness of breath; M06.9 Rheumatoid arthritis, unspecified; R41.9 Unspecified symptoms and signs involving cognitive functions and awareness; F32.9 Major depressive disorder, single episode, unspecified; R51 Headache; G62.9 Polyneuropathy, unspecified; G47.30 Sleep apnea, unspecified; R32 Unspecified urinary incontinence; J44.9 Chronic obstructive pulmonary disease, unspecified; T88.59XD Other complications of anesthesia, subsequent encounter; Z88.1 Allergy status to other antibiotic agents; Z88.2 Allergy status to sulfonamides; Z88.5 Allergy status to narcotic agent; Z79.899 Other long term (current) drug therapy; Z79.82 Long term (current) use of aspirin; Z90.710 Acquired absence of both cervix and uterus; Z72.0 Tobacco use
CPT/HCPCS: 28118; 28200; 64445; 76000; 88300; 88304; 97161; 97530; C1713; J1100; J2250; J2405; J2710; J3010; J3370

== ENCOUNTER 2019-06-12 15:21 | Emergency (ER) | payer OTHER ==
[~2019-06-12] VITALS: Ht 154.9 cm; Wt 95.3 kg
[~2019-06-12 15:21] MED LIST changes: +BIOT10TA2 PO; +CHOL100029 PO; +CVS5000S2 PO; -DULO1CAP3 PO; +DULO1CAP6 PO; -OMEP20CA3 PO; +OMEP20CA4 PO; +PREG100CA PO; -SEVOFLURANE INHAL SOLN 250 ML BTL As Ordered ONE; -VANCOMYCIN HCL 1,000 MG, VIAL MATE ADAPTER 1 EACH in D5W 250 ML IV ONE; +XARE10TA PO
[2019-06-12 16:19] LABS: BASO # 0.1 10^3/uL (0.0-0.2); BASO % 0.7 % (0.0-1.0); EOS # 0.2 10^3/uL (0.0-0.5); EOS % 2.4 % (0.0-3.0); HEMATOCRIT 45.3 % (36.0-47.0); HEMOGLOBIN 14.5 g/dl (12.0-15.5); LYMPH # 2.3 10^3/uL (1.5-5.0); LYMPH % 23.6 % (24.0-44.0); MEAN CORPUSCULAR HEMOGLOBIN 30.9 pg (27.0-33.0); MEAN CORPUSCULAR VOLUME 96.6 fl (80.0-96.0); MONO % 10.2 % (0.0-5.0); NEUTROPHILS % 62.8 % (36.0-66.0); PLATELET COUNT, AUTOMATED 420 10^3/uL (150-450); RED BLOOD COUNT 4.69 10^6/uL (4.00-5.40); WHITE BLOOD COUNT 9.6 10^3/uL (4.0-10.0)
[2019-06-12 16:30] LABS: INR 0.9; PROTHROMBIN TIME 11.9 SECONDS (11.8-14.0)
[2019-06-12 16:31] LABS: PARTIAL THROMBOPLASTIN TIME 24.8 SECONDS (25.0-38.4)
[2019-06-12 16:50] LABS: ALBUMIN 3.2 GM/DL (3.2-5.2); ALT/SGPT 19 U/L (12-78); BILIRUBIN,DIRECT < 0.1 MG/DL (0.0-0.2); BILIRUBIN,TOTAL 0.4 MG/DL (0.2-1.0); BLOOD UREA NITROGEN 11 MG/DL (7-18); CALCIUM LEVEL 9.1 MG/DL (8.5-10.1); CARBON DIOXIDE LEVEL 32 MEQ/L (21-32); CHLORIDE LEVEL 112 MEQ/L (98-107); CK-MB VALUE MASS < 1.0 NG/ML (<3.6); CPK CREATINE PHOSPHOKINASE 27 U/L (26-192); CREATININE FOR GFR 0.86 MG/DL (0.55-1.30); FREE T4 0.86 NG/DL (0.76-1.46); GLOMERULAR FILTRATION RATE > 60.0 (>51); GLUCOSE, FASTING 85 MG/DL (70-100); LIPASE 193 U/L (73-393); POTASSIUM SERUM 4.8 MEQ/L (3.5-5.1); SODIUM LEVEL 149 MEQ/L (136-145); TROPONIN I < 0.02 NG/ML (< 0.10)
--- NOTE | 2019-06-12 17:00 | REP ---
CHEST, SINGLE VIEW: There is no evidence of acute infiltrate. No pleural effusion is seen. The heart is normal in size. The mediastinal silhouette is unremarkable. The visualized osseous structures are intact. IMPRESSION: No acute pulmonary disease. Electronically Signed by Aime Hernandez MD 06/13/2019 10:57 A
--- NOTE | 2019-06-12 17:36 | REP ---
clinical: Persistent pain after recent trauma/fall Technique: Four views of the right hemithorax. Findings: Four views of the right hemithorax demonstrates no obvious acute rib fracture or pathology. Impression: No obvious rib fracture. Electronically Signed by Jj Leach MD 06/12/2019 05:27 P
[2019-06-12 18:24] VITALS: BP 122/73
--- NOTE | 2019-06-13 07:10 | ECGEPIP ---
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
== END 2019-06-12 18:26 | disposition home or self-care (01) ==
LOC: M ED 15:21
DX: S27.892A Contusion of other specified intrathoracic organs, initial encounter (principal); I10 Essential (primary) hypertension; J44.9 Chronic obstructive pulmonary disease, unspecified; K21.9 Gastro-esophageal reflux disease without esophagitis; F17.200 Nicotine dependence, unspecified, uncomplicated; E53.8 Deficiency of other specified B group vitamins; R00.1 Bradycardia, unspecified; Z88.5 Allergy status to narcotic agent; Z88.2 Allergy status to sulfonamides; Z88.1 Allergy status to other antibiotic agents; E78.00 Pure hypercholesterolemia, unspecified; I25.10 Atherosclerotic heart disease of native coronary artery without angina pectoris; F32.9 Major depressive disorder, single episode, unspecified; F41.9 Anxiety disorder, unspecified; W19.XXXA Unspecified fall, initial encounter; Y92.9 Unspecified place or not applicable; Y99.8 Other external cause status; Z79.01 Long term (current) use of anticoagulants; Z79.82 Long term (current) use of aspirin; Z79.899 Other long term (current) drug therapy

== ENCOUNTER → 2021-03-21 | Outpatient (REF) | payer OTHER ==
[~2021-03-21] MED LIST changes: +CYCL-707 PO; -CYCL10TA PO; +ENAL-36 PO; -ENAL10TA2 PO; +GABA-282 PO; +GABA-283 PO; -GABA-843 PO; -GABA-845 PO; +OMEP1CAP73 PO; -OMEP20CA4 PO
[2021-03-21 14:05] LABS: BLOOD UREA NITROGEN 17 MG/DL (7-18); CALCIUM LEVEL 9.6 MG/DL (8.8-10.2); CARBON DIOXIDE LEVEL 26 MEQ/L (21-32); CHLORIDE LEVEL 104 MEQ/L (98-107); CREATININE FOR GFR 0.97 MG/DL (0.55-1.30); GLOMERULAR FILTRATION RATE > 60.0 (>45); GLUCOSE, FASTING 96 MG/DL (70-100); POTASSIUM SERUM 4.2 MEQ/L (3.5-5.1); SODIUM LEVEL 137 MEQ/L (136-145)
== END ==
LOC: M PLALAB 13:01
PROVIDERS: ATTEND Orthopaedic Surgery
DX: Z01.812 Encounter for preprocedural laboratory examination (principal)

== ENCOUNTER → 2021-06-30 | Outpatient (CLI) | payer OTHER ==
--- NOTE | 2021-06-30 12:10 | REPMRS ---
Patient History The patient states she has not had a clinical breast exam in over a year. Patient is postmenopausal. No known family history of cancer. 10 lbs unintentional weight gain. Patient states no breast complaints today. Patient has signed MRS History Sheet. Digital Woman Screen Mammo: June 30, 2021 - Exam #: [id number] Bilateral CC and MLO view(s) were taken. Technologist: RT Sammi Prior study comparison: June 27, 2018, bilateral digital mammo screening bilat, performed at [facility]. May 25, 2015, digital woman screen mammo performed at [facility]. FINDINGS: The breast tissue is almost entirely fat. Screening. Digital screening (2D) mammography was performed bilaterally in the CC and MLO projections. Additionally, breast tomosynthesis (3D mammography) was performed bilaterally in the CC and MLO projections. Todays exam was compared to the prior exam/exams. By history, the patient has no complaints of a palpable breast abnormality or other significant breast complaints. The Volpara volumetric breast density category is A, the breasts are almost entirely fatty. The breasts are unchanged in size and shape. There are no jorge-soft tissue densities or spiculated masses. There is no internal architectural distortion. There are no suspicious jorge-calcific clusters. Skin thickening or nipple retraction is not present. IMPRESSION: BI-RADS Category 2- Benign Findings. There is no evidence of malignant alteration of the breasts. Followup examination recommended in one year. This mammogram was read with the assistance of [facility],an FDA approved computer aided detection system for mammography. The lifetime Tyrer-Cuzick score is 6.8% Negative x-ray reports should not delay surgical consultation if a dominant or clinically suspicious mass is present. Not all breast cancers can be identified by mammography. Therefore, we recommend that you continue to perform regular breast self-examination and physical examination and then promptly contact your physician of any concerns or changes. Adenosis and dense breasts may obscure an underlying neoplasm. No significant changes when compared with prior studies. Assessment: BI-RADS/ACR category 2 mammogram. Benign Findings. Recommendation Routine screening mammogram of both breasts in 1 year. Electronically Signed By: yRan Zaragoza MD 06/30/21 [id number]
--- NOTE | 2021-06-30 12:38 | REP ---
INDICATION: DISORDER OF THYROID/E07.9. COMPARISON: None. TECHNIQUE: Real-time sonographic evaluation of thyroid performed. FINDINGS: Both lobes of the thyroid are normal in size, right lobe measuring 4.7 x 1.3 x 1.5 cm and left lobe 3.6 x 1.5 x 1.3 cm. There is a 6 mm hyperechoic nodule in the right lower pole. No other cystic or solid nodule is seen. IMPRESSION: No evidence of thyromegaly. There is a 6 mm hyperechoic nodule in the right lower pole. According to TI-RADS criteria this is a TR 3 lesion. Since it is less than 1.5 cm no follow-up is needed. <Electronically signed by Aime Hernandez > 06/30/21 [id number]
== END ==
LOC: M WHC 11:17
PROVIDERS: ATTEND Nurse Practitioner Family
DX: E04.1 Nontoxic single thyroid nodule (principal); Z12.31 Encounter for screening mammogram for malignant neoplasm of breast

== ENCOUNTER → 2021-07-08 | Outpatient (CLI) | payer OTHER ==
--- NOTE | 2021-07-08 13:06 | REP ---
INDICATION: NICOTINE DEPENDENCE. COMPARISON: 10/14/2017 THE LATEST PRIOR A STANDARD NONCONTRAST ENHANCED CHEST CT TECHNIQUE: Axial noncontrast images from the thoracic inlet to the upper abdomen using low-dose lung screening technique (LDCT). As per the protocol only lung window images were sent to the read station for interpretation FINDINGS: There are no new abnormal nodules, masses, or opacities. There is an incidental calcified granuloma in the left lower lobe. Grossly, the mediastinum and pulmonary garrick are unchanged. Grossly, the imaged upper abdomen and imaged osseous structures are unchanged. IMPRESSION: Lung rads category 1 low-dose screening CT examination of the lungs. There are no abnormal nodules. Follow-up as per the revised Fleischner society criteria. <Electronically signed by Brandon Goss > 07/08/21 [id number]
== END ==
LOC: M RAD 11:15
PROVIDERS: ATTEND Nurse Practitioner Family
DX: Z12.2 Encounter for screening for malignant neoplasm of respiratory organs (principal); F17.210 Nicotine dependence, cigarettes, uncomplicated; J84.10 Pulmonary fibrosis, unspecified

== ENCOUNTER → 2022-02-28 | Outpatient (CLI) | payer OTHER ==
[2022-02-28 16:31] LABS: BASO # 0.1 10^3/uL (0.0-0.2); BASO % 1.2 % (0.0-1.0); EOS # 0.2 10^3/uL (0.0-0.5); EOS % 2.5 % (0.0-3.0); HEMATOCRIT 46.1 % (36.0-47.0); HEMOGLOBIN 14.8 g/dl (12.0-15.5); LYMPH # 1.9 10^3/uL (1.5-5.0); LYMPH % 24.8 % (24.0-44.0); MEAN CORPUSCULAR HEMOGLOBIN 30.7 pg (27.0-33.0); MEAN CORPUSCULAR HGB CONC 32.1 g/dl (32.0-36.5); MEAN CORPUSCULAR VOLUME 95.6 fl (80.0-96.0); MONO # 0.6 10^3/uL (0.0-0.8); MONO % 7.8 % (2.0-8.0); NEUTROPHILS # 4.9 10^3/uL (1.5-8.5); NEUTROPHILS % 63.4 % (36.0-66.0); PLATELET COUNT, AUTOMATED 490 10^3/uL (150-450); RED BLOOD COUNT 4.82 10^6/uL (4.00-5.40); WHITE BLOOD COUNT 7.7 10^3/uL (4.0-10.0)
[2022-02-28 17:15] LABS: ALBUMIN 3.5 GM/DL (3.2-5.2); ALT/SGPT 23 U/L (12-78); BILIRUBIN,TOTAL 0.5 MG/DL (0.2-1.0); BLOOD UREA NITROGEN 8 MG/DL (7-18); CALCIUM LEVEL 9.1 MG/DL (8.8-10.2); CARBON DIOXIDE LEVEL 28 MEQ/L (21-32); CHLORIDE LEVEL 108 MEQ/L (98-107); CHOLESTEROL LEVEL 183 MG/DL (<200); CHOLESTEROL RISK RATIO 2.859 (<5); CREATININE FOR GFR 0.88 MG/DL (0.55-1.30); FERRITIN 75 NG/ML (8-252); GLOMERULAR FILTRATION RATE > 60.0 (>45); GLUCOSE, FASTING 99 MG/DL (70-100); HDL CHOLESTEROL 64 MG/DL (>40); IRON (FE) 61 UG/DL (50-170); LDL CHOLESTEROL 105 MG/DL (<100); NON-HDL-C 119 MG/DL; POTASSIUM SERUM 4.3 MEQ/L (3.5-5.1); SODIUM LEVEL 141 MEQ/L (136-145); TOTAL 25(OH) VITAMIN D 20.9 NG/ML (30.0-100.0); TOTAL PROTEIN 7.3 GM/DL (6.4-8.2); TRIGLYCERIDES LEVEL 71 MG/DL (<150)
== END ==
LOC: M ADAMS 11:44
PROVIDERS: ATTEND Nurse Practitioner Family
DX: D47.3 Essential (hemorrhagic) thrombocythemia (principal); E03.9 Hypothyroidism, unspecified; E66.8 Other obesity; I10 Essential (primary) hypertension; J44.9 Chronic obstructive pulmonary disease, unspecified; E55.9 Vitamin D deficiency, unspecified